=== PATIENT | male | born 1960 | race Caucasian/White ===

== ENCOUNTER 2021-01-26 16:47 | Outpatient (CLI) | payer OTHER, SELFPAY | END 2021-01-26 16:48 | disposition home or self-care (01) | LOC: ANHCOVIDVC 16:47 | PROVIDERS: PCP Physician Assistant | DX: Z23 Encounter for immunization (principal) | CPT/HCPCS: 0001A; 91300 ==

== ENCOUNTER 2021-02-16 16:55 | Outpatient (CLI) | payer OTHER, SELFPAY | END 2021-02-16 16:56 | disposition home or self-care (01) | LOC: ANHCOVIDVC 16:55 | PROVIDERS: PCP Physician Assistant | DX: Z23 Encounter for immunization (principal) | CPT/HCPCS: 0002A; 91300 ==

== ENCOUNTER 2022-04-26 00:30 | Day surgery (SDC) | payer BC, SELFPAY ==
[2022-04-09 13:27] VITALS: BMI 29.5
--- NOTE | 2022-04-23 06:19 | P.HP_ITS ---
H&P: HPI History of Present Illness Date/Time: 04/23/22 06:19 Chief Complaint: Abnormal PSA Narrative: patient has a longstanding history of prostatism who was recently referred with a PSA of 5.4 that progressed to 10.2 over a short period time. After discussion of options he has elected to proceed with a transrectal ultrasound and ultrasound-guided biopsy of the prostate. He is aware the risk of this inclu ding, but not limited to, adverse cardiopulmonary events, rectal bleeding, urinary tract infection and hematuria. Review of Systems Cardiovascular: Cardiovascular: Denies chest pain, Denies lightheadedness, Denies palpitations and Denies dyspnea Respiratory: Respiratory: Denies dyspnea Gastrointestinal: Gastrointestinal: Denies diarrhea, Denies nausea and Denies vomiting Genitourinary: Genitourinary: Denies hematuria and Denies dysuria Endocrine: Endocrine: Denies palpitations PMFSH Past Medical History Medical History Anxiety GERD (gastroesophageal reflux disease) HLD (hyperlipidemia) Hypertension Obesity (BMI 30.0-34.9) DEEPIKA (obstructive sleep apnea) Surgical History Surgical History History of mitral valve repair History of permanent cardiac pacemaker placement Family History Family History Other Hypertension Social History Social History Smoking status: Never smoker Second hand tobacco smoke exposure: No Alcohol intake: current Alcohol use details: Rarely Substance use: never Substance use type: does not use Spiritual care concerns: No Meds Home Medications and Allergies Home Medications Medication Instructions Recorded Confirmed Type sotalol 80 mg tablet 40 mg PO BID 08/27/21 04/09/22 History metoprolol succinate 50 mg 50 mg PO DAILY #90 tabs 11/22/21 04/09/22 Rx tablet,extended release 24 hr sodium sul 1.479 gram-potas ch See Rx Instructions PO PER PKG DIR 03/18/22 Rx 0.188 gram-magnes sul 0.225 gram #24 tabs tablet (Sutab) amlodipine 10 mg tablet 10 mg PO DAILY #90 tabs 03/21/22 04/09/22 Rx alprazolam 1 mg tablet 1 mg PO DAILY PRN Anxiety 04/09/22 04/09/22 History Allergies Allergy/AdvReac Type Severity Reaction Status Date / Time No Known Allergies Allergy Verified 04/22/22 10:27 Exam Const: General: no acute distress Resp: Effort & Inspection: normal respiratory effort GI: Inspection: non-distended GI Palp: No abdominal tenderness and No Guarding due to palpation present (GI) Auscultation: normal bowel sounds Assessment and Plan Assessment and plan (1) Elevated PSA: Code(s): R97.20 - Elevated prostate specific antigen [PSA] Status: Acute Assessment and Plan: * Transrectal ultrasound of the prostate with ultrasound-guided biopsy
--- NOTE | 2022-04-25 14:45 | WPDANESEPPF ---
Anes - Initial Pre Proc Eval Procedure: Operation Date: 04/26/22 07:00 Proposed Procedures p Screening Colonoscopy - Deangelo Crouch MD s Prostate Biopsy - Tommie Kilpatrick MD <Octavio Pennington DO - Last Filed: 04/25/22 14:46> Date/Time: 04/25/22 14:45 <Octavio Pennington DO - Last Filed: 04/25/22 14:46> Surgeon: Deangelo Crouch MD <Octavio Pennington, DO - Last Filed: 04/25/22 14:46> Pre Op Diagnosis: neoplasm screening <Octavio Pennington DO - Last Filed: 04/25/22 14:46> Patient Data Age: 61 Gender: M Height: 1.8 m Weight: 96 kg <Octavio Pennington DO - Last Filed: 04/25/22 14:46> Allergies Allergy/AdvReac Type Severity Reaction Status Date / Time No Known Allergies Allergy Verified 04/26/22 06:17 <Octavio Pennington DO - Last Filed: 04/25/22 14:46> Home Medications Medication Instructions Recorded Confirmed Type sotalol 80 mg tablet 40 mg PO BID 08/27/21 04/26/22 History metoprolol succinate 50 mg 50 mg PO DAILY #90 tabs 11/22/21 04/26/22 Rx tablet,extended release 24 hr amlodipine 10 mg tablet 10 mg PO DAILY #90 tabs 03/21/22 04/26/22 Rx alprazolam 1 mg tablet 1 mg PO DAILY PRN Anxiety 04/09/22 04/26/22 History <Octavio Pennington DO - Last Filed: 04/25/22 14:46> Patient hx anesthesia problems: none <Giselle Godwin CRNA - Last Filed: 04/26/22 06:52> Family hx anesthesia problems: none <Giselle Godwin CRNA - Last Filed: 04/26/22 06:52> Results Review: All pre-operative results and documents have been reviewed as part of the pre-operative evaluation. <Octavio Pennington DO - Last Filed: 04/25/22 14:46> PMFSH Past Medical History Medical History: Medical History Anxiety GERD (gastroesophageal reflux disease) HLD (hyperlipidemia) Hypertension Obesity (BMI 30.0-34.9) DEEPIKA (obstructive sleep apnea) Pacemaker <Octavio Pennington DO - Last Filed: 04/25/22 14:46> Surgical History Surgical History: Surgical History History of mitral valve repair History of permanent cardiac pacemaker placement <Octavio Pennington DO - Last Filed: 04/25/22 14:46> Family History Family History: Family History Other Hypertension <Octavio Pennington DO - Last Filed: 04/25/22 14:46> Social History Social History: Social History Smoking status: Never smoker Second hand tobacco smoke exposure: No Alcohol intake: current Alcohol use details: seldom; socially Substance use: never Substance use type: does not use Living arrangements: with family Spiritual care concerns: No <Octavio Pennington DO - Last Filed: 04/25/22 14:46> Anes - Eval Final PreProcedure Day of Procedure 04/25/22 14:45 <Octavio Pennington DO - Last Filed: 04/25/22 14:46> Patient weight: overweight <Octavio Pennington DO - Last Filed: 04/25/22 14:46> Heart: regular rate and rhythm <Octavio Pennington DO - Last Filed: 04/25/22 14:46> Lungs: clear to auscultation <Octavio Pennington DO - Last Filed: 04/25/22 14:46> Airway: Mallampati scale class II <Octavio Pennington DO - Last Filed: 04/25/22 14:46> Neurological: alert and oriented <Octavio Pennington DO - Last Filed: 04/25/22 14:46> Last oral intake: >/= 8 hours <Octavio Pennington DO - Last Filed: 04/25/22 14:46> ASA classification: III <Octavio Pennington DO - Last Filed: 04/25/22 14:46> Emergent: no <Octavio Pennington DO - Last Filed: 04/25/22 14:46> Anesthetic plan: proceed <Octavio Pennington DO - Last Filed: 04/25/22 14:46> Anesthesia type and monitoring: general GIVS and stand
[2022-04-26 06:18] VITALS: BP 139/84; PULSE 90; RESP 20; TEMP 36.3; O2SAT 99; BMI 28.3
[2022-04-26] MEDS: LACTATED RINGERS 1,000 ML 150 ML IV CONT (06:33)
--- NOTE | 2022-04-26 06:47 | WPDHPUPDATE1 ---
History and Physical Update Update Date/Time: 04/26/22 06:47 History and Physical has been reviewed, including an updated exam of the patient. There are NO changes in the patient's condition. Risks, benefits, and alternatives have been discussed and questions answered. Patient agrees to proceed with procedure.
--- NOTE | 2022-04-26 07:31 | WPDGICN ---
Assessment and Plan Assessment and plan (1) Colon cancer screening: Code(s): Z12.11 - Encounter for screening for malignant neoplasm of colon Status: Acute Assessment and Plan: Patient presents for neoplasia screening colonoscopy. Appears be at average risk for colon polyps. Further recommendations will be given after endoscopy. (2) Prostate cancer screening: Code(s): Z12.5 - Encounter for screening for malignant neoplasm of prostate Status: Acute Assessment and Plan: Urology evaluating for elevated PSA. GI Consult Note Consult date/time: 04/26/22 07:31 Reason for consult: Neoplasia screening HPI: Prieto Machuca is a 61 year old male presents for screening colonoscopy. Patient's current weight appetite bowel movements are normal. Patient denies any abdominal pain. His bowel habits are normal. Family history noncontributory. Patient has recent PSA was noted to be elevated. Prostate biopsy is anticipated after colonoscopy. Review of Systems Review of Systems: Review of systems noncontributory. PMFSH Past Medical History Medical History Anxiety GERD (gastroesophageal reflux disease) HLD (hyperlipidemia) Hypertension Obesity (BMI 30.0-34.9) DEEPIKA (obstructive sleep apnea) Pacemaker Surgical History Surgical History History of mitral valve repair History of permanent cardiac pacemaker placement Family History Family History Other Hypertension Social History Social History Smoking status: Never smoker Second hand tobacco smoke exposure: No Alcohol intake: current Alcohol use details: seldom; socially Substance use: never Substance use type: does not use Living arrangements: with family Spiritual care concerns: No Meds Home Medications and Allergies Home Medications Medication Instructions Recorded Confirmed Type sotalol 80 mg tablet 40 mg PO BID 08/27/21 04/26/22 History metoprolol succinate 50 mg 50 mg PO DAILY #90 tabs 11/22/21 04/26/22 Rx tablet,extended release 24 hr amlodipine 10 mg tablet 10 mg PO DAILY #90 tabs 03/21/22 04/26/22 Rx alprazolam 1 mg tablet 1 mg PO DAILY PRN Anxiety 04/09/22 04/26/22 History Allergies Allergy/AdvReac Type Severity Reaction Status Date / Time No Known Allergies Allergy Verified 04/26/22 06:17 Vital Signs Vital Signs - 24 hr 04/26/22 06:18 Temperature 97.4 F L Pulse Rate 90 Respiratory Rate 20 Blood Pressure 139/84 Pulse Oximetry 99 Oxygen Delivery Room Air Exam Narrative: Physical exam reveals patient be alert. Vital signs stable. HEENT exam is unremarkable. Patient is anicteric. Lungs are clear to auscultation and percussion. Heart is without murmur or extra sounds. Abdominal exam bowel sounds are present soft nontender with no hepatosplenomegaly. Digital external rectal exam is normal.
[2022-04-26 07:45] VITALS: BP 114/65; PULSE 75; RESP 20; O2SAT 99
--- NOTE | 2022-04-26 07:53 | W.PM.PROC2 ---
Procedure Note - Detailed Date of Procedure 04/26/22 Pre-op Diagnosis Elevated PSA Post-op Diagnosis Same Procedure Performed Transrectal ultrasound prostate with ultrasound guided prostate biopsy Surgeon Tommie Kilpatrick MD Anesthesia General Description of Procedure The patient was place in a left lateral position after administration of systemic sedation by the anesthesia department. Transrectal ultrasound of the prostate is undertaken at 6.0Hz. The prostate capsule is intact and the tissue has a normal echo texture. There is no median lobe and minimal PVR in the bladder. The seminal vesicles have a normal appearance ultrasonically. The prostate measured 64.8gm in size. Using ultrasound guidance a total of 12 biopsy cores are obtained. The ultrasound probe was removed and the patient was taken to the recovery area in good condition. Drains No Packing No Pathology Yes Complications No immediate complications Condition Stable
[2022-04-26 07:55] VITALS: BP 125/76; PULSE 75; RESP 20; O2SAT 99
[2022-04-26 08:05] VITALS: BP 129/77; PULSE 69; RESP 20; O2SAT 99
== END 2022-04-26 08:12 | disposition home or self-care (01) ==
PROVIDERS: Urology; PCP Family Medicine; Visit Provider Internal Medicine Gastroenterology
PROC: 0DJD8ZZ Inspection of Lower Intestinal Tract, Via Natural or Artificial Opening Endoscopic (ICD-10-PCS; CPT 45378; principal; 2022-04-26 07:00)
PROC: (CPT 55700; 2022-04-26 07:00)
DX: Z12.11 Encounter for screening for malignant neoplasm of colon (principal); K64.8 Other hemorrhoids; K57.30 Diverticulosis of large intestine without perforation or abscess without bleeding; R97.20 Elevated prostate specific antigen [PSA]; I10 Essential (primary) hypertension; E78.5 Hyperlipidemia, unspecified; K21.9 Gastro-esophageal reflux disease without esophagitis; G47.33 Obstructive sleep apnea (adult) (pediatric); F41.9 Anxiety disorder, unspecified; Z95.0 Presence of cardiac pacemaker; E66.9 Obesity, unspecified; Z68.28 Body mass index [BMI] 28.0-28.9, adult
CPT/HCPCS: 45378; 55700; 76942; G0416; J0696; J2704; J7120

== ENCOUNTER → 2023-02-24 08:04 | Outpatient (CLI) | payer BC, SELFPAY ==
--- NOTE | ~2023-02-24 | CT_ITS ---
EXAMINATION: CT diagnostic chest wo con DATE: 02/24/2023 08:24 INDICATION: TECHNIQUE: Computed tomography (CT) of the chest was performed without intravenous contrast. The dose -length product was 482.43 mGy-cm. Automated exposure control and iterative reconstruction technique were employed. COMPARISON: Chest x-ray dated 09/02/2018 FINDINGS: There is fusiform ascending thoracic aortic aneurysm measuring 4.1 cm. There are calcified mediastinal lymph nodes, consistent with chronic granulomatous disease. No significant pleural or per icardial effusion. There are calcified granulomas of the spleen. Heart size normal. No thoracic lymph adenopathy. No endobronchial lesions. No pneumothorax. Status post median sternotomy for CABG. Sequen tial pacemaker leads in the right atrium and right ventricle respectively. There is a prosthetic hear t valve. There are a few scattered calcified pulmonary nodules. There is a 2 mm fissural nodule on th e left, likely benign. There is a 4 mm right middle lobe nodule, image 75, likely benign. No focal ai rspace consolidation. IMPRESSION: 1. Fusiform ascending thoracic aortic aneurysm measuring 4.1 cm. 2: Small pulmonary nodules measuring 4 mm or less, likely benign. Consider follow-up low dose CT [facility] in 12 months. Reviewed, dictated and finalized at location B. IMPRESSION: 1. Fusiform ascending thoracic aortic aneurysm measuring 4.1 cm. 2: Small pulmonary nodules measuring 4 mm or less, likely benign. Consider fol low-up low dose CT chest in 12 months.
== END ==
PROVIDERS: PCP Family Medicine; Visit Provider Internal Medicine Cardiovascular Disease
DX: R91.8 Other nonspecific abnormal finding of lung field (principal); I71.20 Thoracic aortic aneurysm, without rupture, unspecified
CPT/HCPCS: 71250

== ENCOUNTER 2023-05-26 03:08 | Day surgery (SDC) | payer BC, SELFPAY ==
[2023-05-23 12:00] VITALS: BMI 30.1
[2023-05-26] VITALS (17 sets, daily range): BP systolic 104–134; BP diastolic 74–94; PULSE 59–75; RESP 12–18; TEMP 36.3; O2SAT 94–99
[2023-05-26 09:07] LABS: Basophils Percent Auto 0.4 % (0.2-1.2); Eosinophils Absolute Auto 0.2 K/mm3 (0-0.3); Eosinophils Percent Auto 2.6 % (0-4.4); Hematocrit 46.6 % (42.0-52.0); Hemoglobin 15.8 g/dL (14.0-18.0); Immature Granulocyte Absolute 0.02 K/mm3 (0.00-0.031); Immature Granulocyte Percent A 0.3 % (0-0.5); Lymphocytes Absolute Auto 1.78 K/mm3 (0.9-3.2); Lymphocytes Percent Auto 24.3 % (18.3-44.2); Mean Corpuscular HGB Conc 33.9 g/dl (32-36); Mean Corpuscular Hemoglobin 28.9 pg (26-34); Mean Corpuscular Volume 85.2 fl (80-100); Mean Platelet Volume 9.8 fl (7.4-10.4); Monocytes Absolute Auto 0.5 K/mm3 (0.1-0.6); Monocytes Percent Auto 7.4 % (2.6-8.5); Neutrophils Absolute Auto 4.8 K/mm3 (1.3-6.7); Platelet Count Result 239 k/mm3 (150-375); Red Blood Count 5.47 M/mm3 (4.6-6.20); Red Cell Distribution Width 13.2 % (11.5-14.5); White Blood Count 7.3 K/mm3 (4.5-10.0)
--- NOTE | 2023-05-26 09:08 | SUR.PREOP ---
DR. BENTON TO BEDSIDE TO SEE PT AND .
--- NOTE | 2023-05-26 09:13 | PM.IMHP ---
H&P: HPI History of Present Illness Date/Time: 05/26/23 09:13 Chief Complaint: No complaints Narrative: This is a 62-year-old man with acquired complete heart block who has a chronically implanted dual-chamber Medtronic pacemaker. Device is working normally but on routine office follow-up is now found to be at [facility]. He is admitted today electively for generator change. He has no active cardiovascular complaints. Review of Systems Constitutional: Constitutional: Reports no additional constitutional complaints Eyes: Eyes: Reports no additional eye complaints ENT: Reports system reviewed and no additional complaints, except as documented Cardiovascular: Cardiovascular: Reports no additional cardiovascular complaints Respiratory: Respiratory: Reports no additional respiratory complaints Gastrointestinal: Gastrointestinal: Reports no additional gastrointestinal complaints Genitourinary: Genitourinary: Reports no additional male genitourinary complaints Musculoskeletal: Musculoskeletal: Reports back pain Integumentary/Breasts: Skin/Breast: Reports system reviewed and no additional complaints, except as docu Neurologic: Reports system reviewed and no additional complaints, except as documented [facility] Past Medical History Medical History Anxiety Aortic root dilatation GERD (gastroesophageal reflux disease) HLD (hyperlipidemia) Hypertension Obesity (BMI 30.0-34.9) DEEPIKA (obstructive sleep apnea) Pacemaker Surgical History Surgical History History of mitral valve repair History of permanent cardiac pacemaker placement Family History Family History Other Hypertension Social History Social History (Updated 05/15/23 @ 11:53 by Suzanna Jerez MA) Smoking status: Never smoker Second hand tobacco smoke exposure: No Alcohol intake: current Alcohol use details: rarely Substance use: never Substance use type: does not use Lack of Transportation: No Lack of Food: Never True Current Housing: I Have Housing Concerned About Future Housing: No Difficulty Paying Gas/Electric Bills: No Difficulty Paying for Meds: No Currently Unemployed: No Education: High School Diploma/GED Difficulty w/ Childcare or Family Care: No Living arrangements: with family Spiritual care concerns: No Agree to blood products: Yes Meds Home Medications and Allergies Home Medications Medication Instructions Recorded Confirmed Type sotalol 80 mg tablet 40 mg PO BID 08/27/21 05/23/23 History metoprolol succinate 50 mg 50 mg PO DAILY #90 tabs 08/28/22 05/23/23 Rx tablet,extended release 24 hr alprazolam 1 mg tablet 1 mg PO DAILY PRN Anxiety #30 tabs 02/17/23 05/23/23 Rx pantoprazole 20 mg tablet,delayed 20 mg PO QAM #30 tabs 03/30/23 05/23/23 Rx release amlodipine 10 mg tablet 10 mg PO DAILY #90 tabs 04/15/23 05/23/23 Rx aspirin 81 mg chewable tablet 81 mg PO DAILY 05/23/23 05/23/23 History Allergies Allergy/AdvReac Type Severity Reaction Status Date / Time No Known Allergies Allergy Verified 05/26/23 08:39 Exam Const: General: comfortable and no acute distress Other: Healthy-appearing white male appears stated age no distress of any kind HENMT: Mouth: Yes moist mucous membranes Eyes: Sclera: sclerae normal Neck: Neck: supple and no JVD Resp: Effort & Inspection: normal respiratory effort Auscultation: clear to auscultation bilaterally Other: Chronic pacemaker pocket the left anterior chest wall is unremarkable in appearance Cardio: Rate: regular rate Rhythm: regular rhythm Other: No murmur no gallop GI: GI Palp: Yes Soft to palpation Auscultation: normal bowel sounds Skin: General skin exam: normal color Neuro: Other: Alert and oriented x3 Extrem: Other: No e
[2023-05-26 09:17] LABS: Prothrombin Time 13.2 Seconds (11.1-14.7)
[2023-05-26 09:20] LABS: Anion Gap 3 mmol/L (8-16); Blood Urea Nitrogen 14 mg/dL (9-20); Calcium 8.9 mg/dL (8.4-10.2); Carbon Dioxide 27 mmol/L (22-30); Chloride 105 mmol/L (98-107); Estimated CRCL calculation 87 ml/min; Estimated Glomerular Filt Rate > 60; Glucose 100 mg/dL (65-110); Potassium 4.1 mmol/L (3.4-5.0); Sodium 135 mmol/L (137-145)
--- NOTE | 2023-05-26 11:27 | WPDCARDPROC ---
Cardiac Cath Procedure Note Date of procedure:: 05/26/23 Performing physician:: Oz Cheema MD Indication:: permanent pacemaker at NIC Brief clinical history:: this is a 62-year-old man with complete heart block who has a chronically implanted dual-chamber pacemaker. Routine office follow-up have demonstrated the device to be at NIC. Device was originally implanted April 07, 2014. Patient is admitted today for elective generator change. He is pacemaker dependent. Procedure Procedure performed:: Placement of temporary transvenous pacemaker via right femoral vein explantation of depleted pacemaker pulse generator implantation of new pacemaker pulse generator Sedation/Medication given:: fentanyl 100 mg Versed 6 mg case start time 10:21 a.m. case end time 11:22 a.m. sedation provided by Bernadette Del Cid RN trained observer Access site:: right femoral vein chronically implanted left anterior chest wall pocket Estimated blood loss:: 25 cc Procedure note:: patient was brought to the cardiac catheterization lab in the postabsorptive state where the right femoral triangle was prepped and draped in the usual fashion. Anesthesia was provided with 1% lidocaine infiltrated locally. Using the modified Seldinger technique a 6 [place] vascular the sheath was placed into the right femoral vein. After this a balloon tipped temporary pacemaker catheter was advanced through the venous circulation it into the right atrium across the tricuspid valve into the right ventricle apex very close to the chronically implanted lead. Appropriate pacing threshold was documented. The device was then turned on a backup VVI at 40 beats per minute. Following this the temporary pacemaker site was dressed with Tegaderm. Attention was then turned to the chest. I broke scrub and re scrubbed for this part of the procedure. The patient had the chronically implanted site prepped and draped in the usual fashion. Once again I infiltrated 1% lidocaine above the pocket. Using the PlasmaBlade an incision was made above the pocket and the PlasmaBlade was used to dissect the subcutaneous fat as well as the fibrous capsule when it was encountered. Electrocautery was used with the PlasmaBlade to secure cutaneous hemostasis. The lateral aspect of the incision did have a small cutaneous artery which was clipped and cauterized. Following this the fibrous capsule was opened and the chronically implanted pacemaker was removed the retention stitch was cut and the device was removed from pocket was visually intact and unremarkable in appearance. The torque wrench was used to remove the leads from the depleted generator and attached the leads to the new generator. The wound was then irrigated with Ancef infused saline. Following this the pacemaker in the attached leads were placed back into the chronically created pocket which was then closed in layers using 3-0 Vicryl in interrupted fashion it is of subcutaneous tissue and 4-0 Vicryl in a subcuticular fashion for the skin. The wound was dressed with an Aquacel dressing. Under fluoroscopic visualization the temporary pacemaker lead was then removed and the case was terminated. The sheath was removed in the bean sprout laborer as well and direct manual pressure was held over the venous puncture site. Postop antibiotics were ordered. Patient tolerated procedure well there were no apparent complications. Findings:: The explanted pacemaker device is a Medtronic dual-chamber pacemaker model A2DR01 serial number [id number]. device was recently implanted 04/07/2014. The new pacemaker generator is a Medtronic dual-chamber device model W1DR01, serial number [id number]. device is programmed in the DDDR mode lower rate limit 60 upper rate limit 130 av delay 180/150 millisecond. The atrial lead is chronically implanted device model 5076-45 serial number [id number]. the P-waves are sensed at 2.0 threshold 0 point volts at 0.4
[2023-05-26] MEDS: HYDROcodone/acetaminophen (*CRX) 5-325 MG TABLET 1 TAB PO ×2 (13:17→14:44)
== END 2023-05-26 16:53 | disposition home or self-care (01) ==
PROVIDERS: PCP Family Medicine; Visit Provider Specialist
PROC: 0JPT0PZ Removal of Cardiac Rhythm Related Device from Trunk Subcutaneous Tissue and Fascia, Open Approach (ICD-10-PCS; CPT 33228; principal; 2023-05-26 10:00)
DX: Z45.010 Encounter for checking and testing of cardiac pacemaker pulse generator [battery] (principal); I44.2 Atrioventricular block, complete; I10 Essential (primary) hypertension; E78.5 Hyperlipidemia, unspecified; G47.33 Obstructive sleep apnea (adult) (pediatric); F41.9 Anxiety disorder, unspecified; E66.9 Obesity, unspecified; Z68.30 Body mass index [BMI] 30.0-30.9, adult; Z79.82 Long term (current) use of aspirin
CPT/HCPCS: 33228; 36415; 80048; 85025; 85610; A9270; C1785; C1894; J0690; J2250; J3010; J7040

== ENCOUNTER 2024-07-08 08:06 | Outpatient (CLI) | payer BC, SELFPAY ==
--- NOTE | ~2024-07-08 | CT_ITS ---
EXAMINATION: CT diagnostic chest wo con DATE: 07/08/2024 08:29 INDICATION: Aortic root dilation, annual eval TECHNIQUE: Computed tomography (CT) of the chest was performed without intravenous contrast. Addition al 3D reconstructions utilizing coronal maximum intensity projection (MIP) were performed. Automated exposure control and iterative reconstruction technique were employed. The dose-length product was 31 6.40 mGy-cm. COMPARISON: 02/24/2023 FINDINGS: No significant interval change in a few scattered calcified and noncalcified pulmonary nodules along with calcified bilateral hilar and mediastinal lymph nodes and several small splenic calcifications a re all likely likely sequela of old granulomatous disease. The largest noncalcified nodule in the rig ht middle lobe measures 4-5 mm maximal diameter. No new pulmonary nodules, pneumonia, pulmonary edema or pleural effusion. Heart size is normal. Postoperative change of prior median sternotomy and adrian l valve repair. Dual-lead cardiac pacemaker with lead tips at the right atrial appendage and at the a pex of the right ventricle. No pericardial effusion. Fusiform ascending thoracic aortic aneurysm now measuring up to 4.5 x 4.3 similar maximal diameters measured orthogonal to the axis of flow on sagitt al and coronal images respectively. The aorta at the arch and descending aorta are normal in caliber. No pathologically enlarged thoracic lymphadenopathy. Aside from the splenic lesions the visualized u pper abdomen is unremarkable. Moderate thoracic spondylosis with bridging osteophytes at multiple lev els consistent with diffuse idiopathic skeletal hyperostosis (DISH). Chronic mild anterior wedging of a few lower thoracic vertebral bodies. IMPRESSION: 1. No significant interval change in a few calcified and noncalcified pulmonary nodules including the largest right middle lobe nodule which measures up to 4-5 mm which likely represents sequela of old granulomatous disease. Reviewed, dictated and finalized at location A. IMPRESSION: 1. No significant interval change in a few calcified and noncalcified pulmonary nodules including the largest right middle lobe nodule which measures up to 4- 5 mm which likely represents sequela of old granulomatous disease.
== END 2024-07-08 08:07 | disposition home or self-care (01) ==
LOC: GOSHIMG 08:06
PROVIDERS: PCP Family Medicine; Visit Provider Internal Medicine Cardiovascular Disease
DX: I77.810 Thoracic aortic ectasia (principal)
CPT/HCPCS: 71250

== ENCOUNTER → 2024-09-16 14:36 | Outpatient (REF) | payer BC, SELFPAY | LOC: ANHLAB 14:36 | PROVIDERS: PCP Family Medicine; Visit Provider Plastic Surgery | DX: C43.59 Malignant melanoma of other part of trunk (principal) | CPT/HCPCS: 88305 ==

== ENCOUNTER 2025-05-21 08:31 | Emergency (ER) | payer BC, SELFPAY ==
[2025-05-21 08:45] VITALS: BP 144/84; PULSE 70; RESP 16; TEMP 36.4; O2SAT 100
--- NOTE | 2025-05-21 09:01 | ED.EAR ---
HPI - Ear Problem General Chief complaint: Ear Stated complaint: something in left ear Patient presents to [facility] with complaints of left ear feeling clogged. Patient reports recently having a wellness visit at primary care physician's office and was told that this left ear was significantly clogged with wax. Was instructed to use that debrox [id number] with warm water flushes. Patient has been doing that for the last several days without relief of symptoms. Patient noted in the past has had to have his ears flushed out at the doctor's office. Denies pain, headache, nasal congestion, or sinus pain. Patient does note intermittent episodes of vertigo which are not abnormal for him- no medication taken for this. Related Data Home Medications ?Medication ?Instructions ?Recorded ?Confirmed ?Last Taken ?Type aspirin 81 mg chewable tablet 81 mg PO DAILY 05/23/23 05/21/25 05/26/23 History Allergies Allergy/AdvReac Type Severity Reaction Status Date / Time No Known Allergies Allergy Verified 05/21/25 08:49 Review of Systems Constitutional: Constitutional: Reports as per HPI, Denies chills, Denies fatigue, Denies fever(s) and Denies weakness Eyes: Eyes: Reports no additional eye complaints ENT: Reports as per HPI, Reports vertigo, Reports dizziness, Denies nasal congestion and Denies sore throat Comments: Clogged left ear Cardiovascular: Cardiovascular: Reports no additional cardiovascular complaints Respiratory: Respiratory: Reports as per HPI, Denies chest congestion and Denies cough Gastrointestinal: Gastrointestinal: Reports no additional gastrointestinal complaints Genitourinary: Genitourinary: Reports no additional male genitourinary complaints Musculoskeletal: Musculoskeletal: Reports no additional musculoskeletal complaints Neurologic: Reports as per HPI, Reports vertigo, Reports dizziness and Denies headache(s) Psychiatric: Psychiatric: Reports no additional psychiatric complaints Endocrine: Endocrine: Reports no additional endocrine complaints Hematologic/Lymphatic: Hematologic/Lymphatic: Reports no additional hematologic/lymphatic complaints Allergic/Immunologic: Allergic/Immunologic: Reports no additional allergic/immunologic complaints PMFSH Past Medical History Medical History Aortic root dilatation HLD (hyperlipidemia) Obesity (BMI 30.0-34.9) Pacemaker Hypertension GERD (gastroesophageal reflux disease) Anxiety DEEPIAK (obstructive sleep apnea) Surgical History Surgical History History of mitral valve repair History of permanent cardiac pacemaker placement Family History Family History Other Hypertension Social History Social History Smoking status: Never smoker Second hand tobacco smoke exposure: No Alcohol intake: current Alcohol use details: rarely Substance use: never Substance use type: does not use Lack of Transportation: No Lack of Food: Never True Current Housing: I Have Housing Concerned About Future Housing: No Difficulty Paying Gas/Electric Bills: No Difficulty Paying for Meds: No Currently Unemployed: No Education: High School Diploma/GED Difficulty w/ Childcare or Family Care: No Living arrangements: with family Spiritual care concerns: No Agree to blood products: Yes Exam Const: General: healthy appearing and no acute distress Nutritional Appearance: well nourished Orientation/consciousness: patient oriented x3 Limitations: no limitations HENMT: Head: normal to inspection Ears: external ears normal and TM's normal bilaterally ( after cerumen removal) Face/Nose/Sinus: Normal external nose present Face and sinus: normal facial exam Mouth: Yes Normal oral and palatal mucosa present Throat: posterior oropharynx normal Other: left ear large amount of soft wax noted. After cerumen removal canal normal Neck: Neck: no lymphadenopathy Resp: Effort & Inspection: normal respiratory effort Auscultation: clear to auscultation bilaterally Cardio: Rate: regular rate Rhythm: regular rhythm Skin: General skin exam: normal color Rashes: no rashes Wounds: no wounds Neuro: General: patient oriented x3 Cranial nerves: Yes Nystagmus not present Speech: normal speech Gait exam (Neuro): Normal gait present Psych: Mental Status: mental status grossly normal Affect: normal affect Attitude: cooperative Course Course Level of Care: Express Care Visit Vital Signs Vital signs: Vital Signs Temperature 97.6 F 05/21/25 08:45 Pulse Rate 70 05/21/25 08:45 Respiratory Rate 16 05/21/25 08:45 Blood Pressure 144/84 H 05/21/25 08:45 Pulse Oximetry 100 05/21/25 08:45 Temperature 97.6 F 05/21/25 08:45 Pulse Rate 70 05/21/25 08:45 Respiratory Rate 16 05/21/25 08:45 Blood Pressure 144/84 H 05/21/25 08:45 Pulse Oximetry 100 05/21/25 08:45 Procedures Ear Wax Removal Left Ear: Ear Wax Removal Date: 05/21/25 Ear Wax Removal Time: 09:04 Cerumenolytic Used: other ( warm water and hydrogen peroxide) Results: Re-examined: cerumen removed completely TM Examination: TM(s) intact, normal appearance Ear Canal Exam: atraumatic Patient Tolerated Procedure: well Complications: vertigo/dizziness Technique: ear canal irrigated and ear canal curetted Medical Decision Making MDM Narrative Medical decision making narrative: cerumen removal performed while in clinic. Successful minimal vertigo noted. Patient having episodes of vertigo previously though. Discharge instructions reviewed with patient, as well as provided in writing per nursing staff. The instructions also include specific and strict return/GO TO THE ER as well as f/u information. All questions have been answered, and the patient deny any further questions with discharge and discharge plan. Differential Diagnosis Differential Diagnosis: Otitis media, otitis externa, cerumen impaction, sinusitis Medical Records Medical records reviewed: Yes I reviewed the external patient's medical records. Vital Signs Vital Signs: Vital Signs Temperature 97.6 F 05/21/25 08:45 Pulse Rate 70 05/21/25 08:45 Respiratory Rate 16 05/21/25 08:45 Blood Pressure 144/84 H 05/21/25 08:45 Pulse Oximetry 100 05/21/25 08:45 Temperature 97.6 F 05/21/25 08:45 Pulse Rate 70 05/21/25 08:45 Respiratory Rate 16 05/21/25 08:45 Blood Pressure 144/84 H 05/21/25 08:45 Pulse Oximetry 100 05/21/25 08:45 Discharge Plan Discharge Clinical Impression: Impacted cerumen of left ear Patient Disposition: Home Condition: Stable Instructions: Antibiotic Form, Carbamide Peroxide (Into the ear) Additional Instructions: we have removed all the ear wax from Your left ear. recommend using Flonase nasal spray on the left side for the next several days to help these ears drain. May continue use Debrox and warm water flushes at to control wax. Patient Language: Turkish Prescriptions: No Action aspirin 81 mg Tablet,Chewable 81 mg PO DAILY metoprolol succinate 50 mg tablet extended release 24 hr 50 mg PO DAILY Qty: 90 2RF alprazolam 1 mg tablet 1 mg PO DAILY PRN (Reason: Anxiety) Qty: 30 0RF Rx Instructions: take 1 tablet by oral route every day amlodipine 10 mg tablet 10 mg PO DAILY Qty: 90 1RF Follow-up/Referrals: Lorena Godinez MD [Primary Care Provider] - Time of Disposition: 09:07
[2025-05-21] MEDS: MECLIZINE HCL 25 MG TABLET PO (09:06)
== END 2025-05-21 09:10 | disposition home or self-care (01) ==
PROVIDERS: Emergency Provider Nurse Practitioner Family; PCP Family Medicine
DX: H61.22 Impacted cerumen, left ear (principal); I10 Essential (primary) hypertension; E78.5 Hyperlipidemia, unspecified; K21.9 Gastro-esophageal reflux disease without esophagitis; E66.9 Obesity, unspecified; Z68.29 Body mass index [BMI] 29.0-29.9, adult; Z95.0 Presence of cardiac pacemaker; Z79.82 Long term (current) use of aspirin
CPT/HCPCS: 69210; 99213; A9270; G0463

== ENCOUNTER 2025-08-05 14:56 | Outpatient (CLI) | payer BC, SELFPAY ==
--- NOTE | ~2025-08-05 | CT_ITS ---
EXAMINATION: CTA chest DATE: 08/05/2025 15:41 INDICATION: Aortic aneurysm. TECHNIQUE: Computed tomographic angiography (CTA) of the chest was performed with 100 mL Omnipaque-350 intravenous contrast. Automated exposure control and iterative reconstruction technique were employed. The dose-length product was 368.04 mGy-cm. Maximum intensity projection 3D-reconstructions of the aorta and other arteries were constructed by the technologist on a separate workstation. COMPARISON: Chest CT 07/08/2024 FINDINGS: There is mild dependent atelectasis bilaterally. Calcified right lung nodules and calcified right hilar and mediastinal lymph nodes are consistent with old granulomatous disease. There is a stable 4 mm nodule in right middle lobe, likely benign. There is a stable 3 mm nodule in right middle lobe, likely benign. No pleural effusion. Cardiomegaly is noted. There are changes of mitral valve replacement. No pericardial effusion. There is a left chest wall pacer with leads in the right atrium and right ventricle. There is no pulmonary embolus. The aorta measures 3.6 cm at the sinuses of Valsalva, 3.9 cm at the sinotubular junction, 4.4 cm in the mid ascending aorta, 2.7 cm at the aortic isthmus, and 2.7 cm in the mid descending aorta. There are bridging endplate osteophytes at multiple levels in the spine, consistent with diffuse idiopathic skeletal hyperostosis (DISH). IMPRESSION: 1. Stable ectasia of ascending aorta measuring 4.4 cm. Reviewed, dictated and finalized at location E.
--- OUTSIDE RECORDS SUMMARY | 2025-08-05 14:59 | XMS_ITS | Clinical Summary ---
Author Organization [facility] [employer] Address [address] [place] [address] Care Team Providers Care Farm Machine Tender Name Role Phone Lorena Tran RN Unavailable [phone] Lorena Godinez MD Primary Care Provider [phone] Source Comments [facility] Affiliates and Associated Physician Practices is amultiple site organization consisting of ambulatory clinics and hospital sitesin [place], [place], [place]. This disclosure is being madepursuant to the Care Everywhere program and may not contain all information available regarding this patient. Last updated 18.[facility] [employer] Allergies No known active allergies Medications * Be aware that medications may not be up to date on this document. Alwaysverify current medications with the patient. aspirin (ASPIRIN) 81 MG chew tablet Take 81 mg by mouth once daily Active amLODIPine (NORVASC) 5 MG tablet Take 5 mg by mouth once daily Active metoprolol succinate XL 24hr (TOPROL XL) 50 MG tablet Take 50 mg by mouth once daily Active ALPRAZolam (XANAX) 1 MG tablet Take 0.5 mg by mouth 3 times daily as needed for Anxiety Active sotalol (BETAPACE) 80 MG tablet Take 1 tablet by mouth 2 times daily 60 tablet 3 09/11/2018 Active Active Problems Problem Noted Date Diagnosed Date Paroxysmal VT 09/09/2018 Social History Tobacco Use Types Packs/Day Years Used Date Smoking Tobacco: Former Smokeless Tobacco: Former Comments:smoked a little as a teenager Alcohol Use Standard Drinks/Week Comments Yes 0 (1 standard drink = 0.6 oz pur e alcohol) rarely Sex and Gender Information Value Date Recorded Sex Assigned at Not on file Legal 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 Gender Identity Not on file Sexual Orientation Not on file Last Filed Vital Signs Vital Sign Reading Time Taken Comments Blood Pressure 144/96 09/11/2018 7:56 AM STORE STOCK ASSOCIATE Pulse 65 09/11/2018 7:56 AM STORE STOCK ASSOCIATE Temperature 36.6 C (97.9 F) 09/11/2018 7:56 AM STORE STOCK ASSOCIATE Respiratory Rate 16 09/11/2018 7:56 AM STORE STOCK ASSOCIATE Oxygen Saturation 100% 09/11/2018 7:56 AM STORE STOCK ASSOCIATE Inhaled Oxygen Concentration - - Weight 96.2 kg (212 lb) 09/09/2018 7:22 AM STORE STOCK ASSOCIATE Height 180.3 cm (5' 11) 09/09/2018 7:22 AM STORE STOCK ASSOCIATE Body Mass Index 29.57 09/09/2018 7:22 AM STORE STOCK ASSOCIATE Plan of Treatment Health Maintenance Due Date Last Done Comments COLOGUARD (AGES 45-75) - COL ON CA SCREENING 1958 COLON MONITORING 1958 COLONOSCOPY - COLON CA SCREENING 1958 CT COLONOGRAPHY - COLON CA SCREENING 1960 Colorectal Cancer Screening 1958 FIT - COLON CA SCREENING 1958 FLEX SIG - COLON CA SCREENING 1958 LIPID TESTING 1958 HEPATITIS C SCREENING 07/14/1976 DTAP/TDAP/TD VACCINES (1 - Tdap) 1977 PNEUMOCOCCAL VACCINE 50+ (1 of 1 - PCV) 2008 ZOSTER VACCINE (1 of 2) 2008 AAA SCREENING 2023 DEPRESSION SCREENING 10/13/2024 COVID-19 VACCINE (1 - 2023-2 5 season) 2025 INFLUENZA VACCINE (#1) 2025 Respiratory Syncytial Virus (RSV) Vaccine Pt: or over 60 yrs (1 - 1-dose 75+ series) 2033 HEPATITIS B VACCINE Aged Out No longe r eligible based on patient's age to complete this topic HIB VACCINE Aged Out No longer eligi ble based on patient's age to complete this topic HPV VACCINE Aged Out No longer eligi ble based on patient's age to complete this topic MENINGOCOCCAL (Group B) VACC INE SHARED DECISION-MAKING Aged Out No longer eligibl e based on patient's age to complete this topic MENINGOCOCCAL GROUPS A/C/Y/W VACCINE Aged Out No longer eligible b ased on patient's age to complete this topic Insurance SELF PAY NO INSURANCE Member Subscriber Plan / Payer (Ef fective for All Dates) Name:Prieto Turner Member ID:Not on file Relation to Subscriber:Not on file Name:PRIETO TURNER Subscriber ID:Not on file (Home) Address: [address] [place] [address] Payer ID:Not on file Group ID:Not on file Type:Self Pay Address: [place], [place] Advance Directives * Full Code (Latest Code Status on File) Date Activated Date Inactivated Comments 09/09/2018 10:35 AM 09/11/2018 3:22 PM Care Teams Farm Machine Tender Relationship Specialty Start Date End Date Lorena Godinez MD [address] [place] [address] PCP - General 05/10/22 Lorena Tran, RN Manager Relationship 09/10/18
--- OUTSIDE RECORDS SUMMARY | 2025-08-05 14:59 | XMS_ITS | Encounter Summary ---
Author Organization [facility] Address [address] [place] [address] Care Team Providers Care Client Services Assistant Name Role Phone Les Han MD Primary Care Provider [phone] Les Han MD Primary Care Provider [phone] Kimberly Sepulveda MD Primary Care Provider [phone] Lorena Godinez MD Primary Care Provider [phone] Encounter Details Date Type Department Care Team (Late st Contact Info) Description 12/19/2016 Orders Only [facility] ProviderWilmar MD [address] [place] [id number] Social History Tobacco Use Types Packs/Day Years Used Date Smoking Tobacco: Never Alcohol Use Standard Drinks/Week Comments Yes 0 (1 standard drink = 0.6 oz pur e alcohol) Sex and Gender Information Value Date Recorded Sex Assigned at Not on file Legal 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 Historical Provider [facility] G[facility]S Final Result documented in this encounter Visit Diagnoses Not on filedocumented in this encounter Care Teams Client Services Assistant Relationship Specialty Start Date End Date Les Han MD [address] [place] [address] PCP - General 01/18/17 11/24/18 Les Han MD [address] [place] [address] PCP - General 02/05/12 01/17/17 Kimberly Sepulveda MD [address] [place] [address] PCP - General Family Practice 11/25/18 05/29/21 Lorena Godinez MD [address] [place] [address] PCP - General Family Medicine 05/30/21 documented as of this encounter
--- OUTSIDE RECORDS SUMMARY | 2025-08-05 14:59 | XMS_ITS | Clinical Summary ---
Author Organization [facility] [place] [address] Address [address] [place] [address] Care Team Providers Care Novelty Twister Operator Name Role Phone Lorena Godinez MD Primary Care Provider [phone] Allergies No known active allergies Medications metoprolol XL (TOPROL-XL) 50 mg 24 hr tablet take 1 tablet by oral route every day 0 02/03/2014 Active ALPRAZolam (XANAX) 1 mg tablet Take 1 tablet (1 mg total) by mouth daily 01/18/2020 Active aspirin 81 mg enteric coated tabletIndication s:Aortic root dilatation,Histo ry of mitral valve repair Take 1 tablet (81 mg total) by mouth daily 30 tablet 11 02/17/2023 Active rosuvastatin (CRESTOR) 10 mg tabletIndication s:Aortic root dilatation,Hyper lipidemia LDL goal <70 Take 1 tablet (10 mg total) by mouth daily 90 tablet 3 06/27/2025 6 Active amLODIPine (NORVASC) 10 mg tablet TAKE 1 TABLET ORALLY DAILY 30 tablet 5 07/04/2025 Active Active Problems Problem Noted Date Diagnosed Date Hyperlipidemia LDL goal <70 06/27/2025 Encounter for monitoring sotalol therapy 021 Gastroesophageal reflux disease 03/05/2019 Nonsustained ventricular tachycardia 12/07/2018 History of mitral valve repair 03/21/2017 Aortic root dilatation 03/21/2017 Obstructive sleep apnea 03/21/2017 Presence of cardiac pacemaker 03/21/2017 Overview (06/05/2023): Medtronic Shirley Dual Pacemaker Dx; Second Degree AVB-Mobitz II. DOI 05/26/2023-Deni. Chronic leads 04/07/2014. Mihir. [facility] remote home monitoring. Essential hypertension, benign 03/21/2017 Mitral valve insufficiency 02/05/2012 Overview (01/17/2017): Mitral regurgitation Encounters Date Type Department Care Team Description 06/27/2025 8:45 AM CDT Office Visit [facility] Cardiology [address] [place] [id number] Celio Stevenson MD Aortic root dilatation (Primary Dx); Essential hypertension, benign; History of mitral valve repair; Presence of cardiac pacemaker; Obstructive sleep apnea; Hyperlipidemia LDL goal <70 05/11/2025 7:15 AM CDT Ancillary Procedure [facility] Cardiology [address] [place] [id number] Presence of cardiac pacemaker; Second degree AV block from Last 3 Months Surgical History Surgery Date Site/Laterality Comments HERNIA REPAIR Hernia repair OTHER SURGICAL HISTORY Exploratory f or bleeding after accident KNEE SURGERY Left Knee Surgery Medical History Medical History Date Comments Hx Other Medical Kidney Stones - removal Family History Medical History Relation Name Comments Sudden Father 2 Sudden ; C ause of : Sudden Other Mother 2 Healthy; Relation Name Status Comments Father 1 (Age 74) Father 2 Mother 1 Alive Mother 2 Social History Tobacco Use Types Packs/Day Years Used Date Smoking Tobacco: Never Smokeless Tobacco: Never Tobacco Cessation:Counseling Given: Not Answered Alcohol Use Standard Drinks/Week Comments No 0 (1 standard drink = 0.6 oz pur e alcohol) Sex and Gender Information Value Date Recorded Sex Assigned at Not on file Legal Sex 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 Gender Identity Not on file Sexual Orientation Not on file Obstetrics History Last Filed Vital Signs Vital Sign Reading Time Taken Comments Blood Pressure 128/82 06/27/2025 8:46 AM CDT Pulse 73 06/27/2025 8:46 AM CDT Temperature - - Respiratory Rate 16 01/27/2024 9:37 AM CDT Oxygen Saturation 98% 06/27/2025 8:46 AM CDT Inhaled Oxygen Concentration - - Weight 97.5 kg (215 lb) 06/27/2025 8:46 AM CDT Height 180.3 cm (5' 11) 06/27/2025 8:46 AM CDT Body Mass Index 29.99 06/27/2025 8:46 AM CDT Plan of Treatment Health Maintenance Due Date Last Done Comments Colon Cancer Screening-Colonoscopy 1958 Depression Screening 1958 Fall Risk Assessment 1958 Hepatitis C Screening 1958 Prostate Cancer Screening-PSA 1958 Hepatitis B Screening 1976 Pneumococcal vaccine 65+ (1 of 1 - PCV) 2008 Zoster Vaccine (1 of 2) 2008 DTaP/Tdap/Td Vaccine (2 - Td or Tdap) 04/19/202305/2013 Well Visit 65+ 2023 Covid-19 Vaccine (3 - season) 06/13/202504/2021, 01/26/2021 Influenza Vaccine (#1) 2025 Medical Devices Implanted Type Area Product Scientist Device Identifier Shelf Expiration Date Model / Serial / Lot Pacemaker Pacemaker Chest Wall Medtronic Inc Pacemaker-04/05 Implanted:03/14 (Quantity not on file) Pacemaker Chest Medtronic Second Degree AVB [address] [place] / [id number] / Procedures Procedure Name Priority Date/Time Associated Diagnosis Comments POCT LIPID PANEL Routine 06/27/2025 8:53 AM CDT Hyperlipidemia LDL goal <70 DEVICE CHECK - REMOTE Routine 05/11/2025 7:14 AM CDT Presence of cardiac pacemaker Second degree AV block from Last 3 Months Results * POCT lipid panel (06/27/2025 8:53 AM CDT) Cholesterol, POC 165 <200 MG/DL HDL, POC 41 >=40 mg/dL Triglycerides, POC 120 <=149 mg/dL LDL Cholesterol POC 101 <=129 mg/dL Chol/HDL Ratio, POC 2.5 NONE Non-HDL Cholesterol, POC 125 NONE mg/dL Cholesterol Total, POC 165 30 - 199 mg/dL Capillary blood 06/27/2025 8 :53 AM CDT Celio Stevenson MD POINT OF CARE TEST ORDERA BLES Final Result * DEVICE CHECK - REMOTE (05/11/2025 7:14 AM CDT) Anatomical Region Laterality Modality Other Narrative 06/09/2025 4:54 PM CDT Medtronic Muse Dual Pacemaker Dx;Second Degree AVB-Mobitz II DOI 05/26/2023-Deni. Chronic leads 04/07/2014. Mihir. [facility] remote home monitoring. Routine DDDR Pacemaker Remote. Transmission attached. Battery status: 3.01 V , 9.5 years remaining battery life to NIC. Stable lead impedances, pacing and sensing thresholds. Presenting rhythm: AP/COMMUNITY RELATIONS DIRECTOR AP-79.9%, COMMUNITY RELATIONS DIRECTOR-99.8% No AT/AF episodes noted. 4 Ventricular high rate episodes detected, IEGM demonstrates NSVT with the longest episode lasting 1 second. Medications: ASA 81 mg, amlodipine 10 mg, Toprol-XL 50 mg See scanned report. Office pacemaker follow up: 09/28/25 [facility] remote f/u 08/17/25. Darnell Alanis RN Celio Stevenson MD [facility]E SLIM Final Result from Last 3 Months Insurance [facility] [place] [id number] [facility] ACCESS CHOICE AETNA MEDICARE GOLD [facility] MED[facility] Address: [address] [place] [address] Care Teams Novelty Twister Operator Relationship Specialty Start Date End Date Lorena Godinez MD PCP - General Family Medicine 05/30/21
[2025-08-05 15:29] LABS: Estimated Glomerular Filt Rate 60
== END 2025-08-05 14:57 | disposition home or self-care (01) ==
PROVIDERS: PCP Family Medicine; Visit Provider Internal Medicine Cardiovascular Disease
DX: I77.810 Thoracic aortic ectasia (principal)
CPT/HCPCS: 71275; Q9967